=== PATIENT | female | born 1990 | race Caucasian/White ===

== ENCOUNTER 2020-01-28 13:06 | Emergency (ER) | payer OTHER ==
[~2020-01-28] VITALS: Ht 170.2 cm; Wt 90.7 kg
== END 2020-01-28 13:37 | disposition short-term general hospital (02) ==
LOC: EDBD 13:06 → ER 13:06
DX: S01.83XA Puncture wound without foreign body of other part of head, initial encounter (principal); R40.2430 Glasgow coma scale score 3-8, unspecified time; Y92.002 Bathroom of unspecified non-institutional (private) residence as the place of occurrence of the external cause
CPT/HCPCS: 31720; 70450; 70491; 71045; 94002; 96365-59; 99285-25; J1953; Q9967